=== PATIENT | female | born 1970 | race American Indian/Alaskan Native ===

== ENCOUNTER 2017-02-10 10:51 | Outpatient (CLI) | payer OTHER ==
--- NOTE | 2017-02-10 13:33 | Mammography Report ---
Bilateral diagnostic mammogram with CAD and targeted left axillary ultrasound. History: Left axillary swelling without palpable lump. Findings: The patient's prior mammogram was performed at [facility] and is unavailable. There is heterogeneous density of the fibroglandular tissue with no evidence of focal mass or architectural distortion. No suspicious calcifications are seen. Bilateral small axillary lymph nodes are seen. Sonographic evaluation of the left axilla demonstrates multiple lymph nodes with normal architecture, the largest of which measures 2.0 x 0.6 x 0.8 cm. Impression: No suspicious findings. BI-RADS code: 2. Recommendation: Annual screening.
== END 2017-02-10 10:52 | disposition home or self-care (01) ==
LOC: MAMMO 10:51
PROVIDERS: ATTEND Family Medicine
DX: R92.8 Other abnormal and inconclusive findings on diagnostic imaging of breast (principal); Z80.3 Family history of malignant neoplasm of breast
CPT/HCPCS: 77066; 77067; G0202; G0204